=== PATIENT | male | born 2000 | race Two or more races ===

== ENCOUNTER 2020-04-13 17:53 | Emergency (ER) | payer SELFPAY ==
[~2020-04-13] VITALS: Ht 165.1 cm; Wt 75.0 kg
[2020-04-13] MEDS ORDERED: LIDOcaine 1% W/epiNEPHrine 1:200,000 10ml vial IJ ONE (18:20)
[2020-04-13] MEDS ORDERED: amox tr/potassium clavulanate 875/125mg TAB PO ONE (18:20)
[2020-04-13] MEDS ORDERED: TETanus/Pertussis (Acell)/Diphther VAC/PF (Tdap-Adult) 0.5ml syringe IMVAC ONE (18:20)
[2020-04-13 18:29] VITALS: BP 146/75
[2020-04-13] MEDS ORDERED: AMOX-422 PO (18:38)
[2020-04-13] MEDS ORDERED: bacitracin 15gm ointment TP ONE (18:40)
[2020-04-13] MEDS ORDERED: LIDOcaine 1% w/epiNEPHrine 1:200,000 30ml vial IJ ONE (18:40)
== END 2020-04-13 19:12 ==
LOC: ER 17:54
DX: S81.851A Open bite, right lower leg, initial encounter (principal); Z79.2 Long term (current) use of antibiotics; W54.0XXA Bitten by dog, initial encounter; Y93.89 Activity, other specified; Y92.89 Other specified places as the place of occurrence of the external cause; Y99.8 Other external cause status
CPT/HCPCS: 90471; 90715; 99283